=== PATIENT | female | born 1995 | race Caucasian/White ===

== ENCOUNTER 2021-09-11 00:35 | Inpatient (IN) | payer BC, MEDICAID, SELFPAY ==
[2021-09-11 00:54] VITALS: BMI 23.1
[2021-09-11] MEDS ORDERED: hydrALAZINE 20 MG/ML VIAL SLOW IVP PRN ×2 (01:12→03:50)
[2021-09-11] MEDS ORDERED: Carboprost 250 MCG/ML AMP IM PRN (01:12)
[2021-09-11] MEDS ORDERED: Ibuprofen 800 MG TAB PO PRN (01:12)
[2021-09-11] MEDS ORDERED: Lidocaine 1% (PF) 30 ML VIAL SC PRN (01:12)
[2021-09-11] MEDS ORDERED: Butorphanol Tartrate 1 MG/ML VIAL SLOW IVP PRN (01:12)
[2021-09-11] MEDS ORDERED: Acetaminophen 500 MG TAB PO PRN (01:12)
[2021-09-11] MEDS ORDERED: Ondansetron PF 4 MG/2 ML Vial IVP PRN (01:12)
[2021-09-11] MEDS ORDERED: Promethazine HCl 25 MG/ML VIAL IM PRN (01:12)
[2021-09-11] MEDS ORDERED: HYDROcodone/Acetaminophen 5/325 mg Tablet PO PRN (01:12)
[2021-09-11] MEDS ORDERED: Diphenoxylate HCl/Atropine Tablet PO PRN (01:12)
[2021-09-11] MEDS ORDERED: Misoprostol 200 MCG TAB PR PRN (01:12)
[2021-09-11] MEDS ORDERED: Methylergonovine 0.2 MG/ML VIAL IM PRN (01:12)
[2021-09-11] MEDS ORDERED: NS w/ Oxytocin 30 units 500 ML IV SCH (01:15)
[2021-09-11] MEDS ORDERED: Penicillin G Potassium 5 MILL.UNITS VIAL ONE (01:16)
[2021-09-11] MEDS ORDERED: Penicillin G Potassium 5 MILL.UNITS in Sodium Chloride 0.9% 100 ML IVPB SCH (01:30)
[2021-09-11 01:36] LABS: Hemoglobin 11.5 g/dL (12.0-15.5); Mean Corpuscular HGB CONC 32.4 g/dL (32.0-36.0); Mean Corpuscular Hemoglobin 28.5 pg (27.0-33.0); Mean Corpuscular Volume 87.9 fl (81.6-98.3); Mean Platelet Volume 10.6 fl (7.4-10.4); Platelet Count 164 10x3/uL (150-450); RBC Distribution Width 15.3 % (11.5-14.5); Red Blood Cell (RBC) Count 4.04 10x6/uL (3.90-5.03); White Blood Cell (WBC) Count 16.7 10x3/uL (3.5-10.5)
[2021-09-11 02:13] LABS: Hep B Surf Ag Non-Reactive S/CO (NonReactive)
[2021-09-11 02:15] LABS: Syphilis Antibody Nonreactive (Nonreactive); Syphilis Antibody Index 0.02 S/CO (<1.00 Non-Reactive)
[2021-09-11 02:33] LABS: HBSAg Index 0.17 S/CO (0-0.99)
[2021-09-11] MEDS: Lactated Ringer's 1,000 ML IV SCH ×3 (03:09→18:46)
[2021-09-11 03:26] LABS: SARS-CoV-2 NAA Rapid Test Not Detected (NotDetected)
[2021-09-11] MEDS ORDERED: Bisacodyl 10 MG SUPP PR PRN (03:50)
[2021-09-11] MEDS ORDERED: Milk Of Magnesia 30 ML UDCUP PO PRN (03:50)
[2021-09-11] MEDS ORDERED: Boostrix 0.5 ML (Tdap) VIAL IM ONE (03:50)
[2021-09-11] MEDS ORDERED: Penicillin G 2.5 MILL.units 2.5 MILL.UNITS in Premix Bag 1 BAG IVPB SCH (05:00)
[2021-09-11] MEDS: Ibuprofen 800 MG TAB PO PRN ×3 (05:47→21:23)
[2021-09-11 06:27] LABS: HIV (1/2) Antibody/Antigen Non-Reactive (NonReactive); HIV 1/2 INDEX 0.06 S/CO (<1.00)
[2021-09-11] MEDS: Ferrous Sulfate 325 MG TAB PO SCH ×2 (08:11→18:46)
[2021-09-11] MEDS: Docusate Calcium (SURFAK) 240 MG CAP PO SCH ×2 (08:22→21:23)
[2021-09-12] MEDS: Lactated Ringer's 1,000 ML IV SCH ×2 (03:48→09:12)
[2021-09-12] MEDS: Ibuprofen 800 MG TAB PO PRN (05:30)
[2021-09-12 07:22] LABS: #Eosinphils 0.2 10x3/uL (0.0-0.5); #Monocytes 1.1 10x3/uL (0.0-1.1); #Neutrophils 9.2 10x3/uL (1.5-8.4); %Basophils 0.3 % (0.0-2.0); %Eosinophils 1.2 % (0.0-6.0); %Lymphocytes 18.9 % (18.0-47.0); %Monocytes 8.5 % (0.0-10.0); %Neutrophils 70.6 % (40.0-75.0); Hemoglobin 11.5 g/dL (12.0-15.5); Mean Corpuscular HGB CONC 31.8 g/dL (32.0-36.0); Mean Corpuscular Hemoglobin 28.5 pg (27.0-33.0); Mean Corpuscular Volume 89.8 fl (81.6-98.3); Mean Platelet Volume 10.5 fl (7.4-10.4); Platelet Count 182 10x3/uL (150-450); RBC Distribution Width 15.6 % (11.5-14.5); Red Blood Cell (RBC) Count 4.03 10x6/uL (3.90-5.03); White Blood Cell (WBC) Count 13.1 10x3/uL (3.5-10.5)
[2021-09-12 08:19] VITALS: BP 111/69; TEMP 98.4
[2021-09-12] MEDS: Ferrous Sulfate 325 MG TAB PO SCH (09:12)
[2021-09-12] MEDS: Docusate Calcium (SURFAK) 240 MG CAP PO SCH (09:13)
== END 2021-09-12 14:22 | disposition home or self-care (01) | DRG 805 ==
LOC: CSHLD/OP 00:35 → CSHLD 00:36 → CSHPP 03:35
PROVIDERS: ADMIT Obstetrics & Gynecology; ATTEND Obstetrics & Gynecology
PROC: 10E0XZZ Delivery of Products of Conception, External Approach (ICD-10-PCS; principal; 2021-09-11)
DX: O76 Abnormality in fetal heart rate and rhythm complicating labor and delivery (principal); O60.13X0 Preterm labor second trimester with preterm delivery third trimester, not applicable or unspecified; O45.93 Premature separation of placenta, unspecified, third trimester; Z20.822 Contact with and (suspected) exposure to COVID-19; Z37.0 Single live birth; Z3A.36 36 weeks gestation of pregnancy
CPT/HCPCS: 36415; 85025; 85027; 86780; 86850; 86900; 86901; 87340; 87389; 99285; J2540; U0002